=== PATIENT | male | born 1960 | race Caucasian/White ===

== ENCOUNTER 2019-03-14 22:07 | Observation (INO) | payer OTHER ==
[~2019-03-14] VITALS: Ht 193 cm; Wt 75.9 kg
[~2019-03-14 22:07] MED LIST: Bactrim Ds Tab1 EACH PO; Cleocin HCl300 MG PO; Norco 5-325 Ta1 EACH PO
[2019-03-14 23:29] LABS: BASOPHILS ABSOLUTE AUTO 0.09 K/mm3 (0.00-0.23); BASOPHILS PERCENT AUTO 1 % (0-2); EOSINOPHILS ABSOLUTE AUTO 0.17 K/mm3 (0.00-0.68); EOSINOPHILS PERCENT AUTO 1 % (0-6); Hematocrit 40.1 % (37.0-53.0); Hemoglobin 12.9 g/dL (13.5-17.5); IMMATURE GRAN PERCENT AUTO 1 % (0-1); LYMPHOCYTES ABSOLUTE AUTO 2.55 K/mm3 (0.84-5.20); LYMPHOCYTES PERCENT AUTO 15 % (21-46); MONOCYTES ABSOLUTE AUTO 1.22 K/mm3 (0.16-1.47); MONOCYTES PERCENT AUTO 7 % (4-13); Mean Corpuscular HGB 29.3 pg (26.0-34.0); Mean Corpuscular HGB Conc 32.2 g/dL (31.5-36.5); Mean Corpuscular Volume 91 fL (80-100); Mean Platelet Volume 8.8 fL (9.1-12.4); NEUTROPHILS ABSOLUTE AUTO 13.33 K/mm3 (1.96-9.15); NEUTROPHILS PERCENT AUTO 76 % (41-73); Platelet Count 310 K/mm3 (150-400); RDW Standard Deviation 43.4 fL (35.1-46.3); Red Blood Cell Count 4.41 M/mm3 (4.30-5.90); White Blood Cell Count 17.46 K/mm3 (4.00-11.30)
[2019-03-14 23:46] LABS: Alanine Aminotransfer (ALT/SGP 12 U/L (12-78); Albumin/Globulin Ratio 0.8 (0.8-1.8); Alk Phos 83 U/L (50-136); Anion Gap 5 mmol/L (6-16); Aspartate Aminotrans (AST/SGOT 8 U/L (12-37); Bilirubin, Total 0.2 mg/dL (0.1-1.0); Blood Urea Nitrogen 17 mg/dL (8-24); Bun/Creatinine Ratio 20.4 (12.0-20.0); CO2, Blood 29 mmol/L (21-32); Calcium, Blood 8.6 mg/dL (8.5-10.1); Chloride, Blood 106 mmol/L (98-108); Creatinine, Blood 0.84 mg/dL (0.60-1.20); Globulin, Blood 3.6 g/dL (2.2-4.0); Glomerular Filtration Rate >60 (60-); Glucose, Blood 103 mg/dL (70-99); Potassium, Blood 3.8 mmol/L (3.5-5.5); Sodium, Blood 140 mmol/L (136-145); Total Protein, Blood 6.6 g/dL (6.4-8.2)
--- NOTE | 2019-03-15 06:31 | NUR ---
ADMIT NOTE/SHIFT SUMMARY PATIENT PLEASENT AND COOPERATIVE, PATIENT ABLE TO TRANSFER SELF FROM GURNEY TO BED WITH SBA ASSIST. PATIENT SETTLED IN AND ORIENTED TO THE ROOM, UNIT, AND CALL LIGHT. AFTER PATIENT'S ADMIT COMPLETED PATIENT APPEARED TO SLEEP WELL THROUGHOUT THE REST OF THE NIGHT. PATIENT MEDICATED FOR PAIN X 1. IV FLUIDS RUNNING PER ORDERS, IV ABX GIVEN PER ORDERS. PATIENT'S STAYED THE NIGHT AT THE BEDSIDE. VITAL SIGNS CHARTED. WILL CONTINUE TO MONITOR PATIENT AND REPORT TO ONCOMING RN.
[2019-03-15 13:50] LABS: Hematocrit 38.7 % (37.0-53.0); Hemoglobin 12.3 g/dL (13.5-17.5); Mean Corpuscular HGB 29.4 pg (26.0-34.0); Mean Corpuscular HGB Conc 31.8 g/dL (31.5-36.5); Mean Corpuscular Volume 93 fL (80-100); Mean Platelet Volume 9.4 fL (9.1-12.4); Platelet Count 297 K/mm3 (150-400); RDW Coefficient Variation 13.1 % (11.7-14.2); RDW Standard Deviation 44.8 fL (35.1-46.3); Red Blood Cell Count 4.18 M/mm3 (4.30-5.90); White Blood Cell Count 16.23 K/mm3 (4.00-11.30)
[2019-03-15 14:05] LABS: Alanine Aminotransfer (ALT/SGP 12 U/L (12-78); Albumin, Blood 2.6 g/dL (3.4-5.0); Albumin/Globulin Ratio 0.7 (0.8-1.8); Alk Phos 77 U/L (50-136); Anion Gap 5 mmol/L (6-16); Aspartate Aminotrans (AST/SGOT 8 U/L (12-37); Bilirubin, Total 0.2 mg/dL (0.1-1.0); Blood Urea Nitrogen 16 mg/dL (8-24); Bun/Creatinine Ratio 17.8 (12.0-20.0); CO2, Blood 29 mmol/L (21-32); Calcium, Blood 8.5 mg/dL (8.5-10.1); Chloride, Blood 106 mmol/L (98-108); Globulin, Blood 3.6 g/dL (2.2-4.0); Glomerular Filtration Rate >60 (60-); Glucose, Blood 77 mg/dL (70-99); Potassium, Blood 3.8 mmol/L (3.5-5.5); Sodium, Blood 140 mmol/L (136-145); Total Protein, Blood 6.2 g/dL (6.4-8.2)
--- NOTE | 2019-03-15 15:01 | NUR ---
DR LACY HOUSE HERE TO SEE PT. DR HOUSE STATED THAT PACKING CAN COME OUT. THEN PT CAN GO HOME IF HOSPITALIST OK. NO FURTHER SURGICAL F/U NEEDED. CONTINUE POT.
--- NOTE | 2019-03-15 16:04 | NUR ---
TRANSFER TO 354 REPORT CALLED TO [facility] 3RD FLOOR. PT DID NOT WANT TO W/C OR RIDE IN THE BED. HE CHOSE TO WALK TO 354. GAIT STEADY. ACCOMPANIED BY RN AND BENCH SHEAR OPERATOR. CONTINUE POT.
--- NOTE | 2019-03-15 18:12 | NUR ---
SHIFT SUMMARY PT AXO, PLEASANT AND COOPERATIVE WITH CARE. PT ARRIVED TO ROOM VIA SELF AMBULATION ON STEADY GAIT. PT DENIES PAIN, SOB AND NV. PT SITTING UP EATING DINNER AT THIS TIME. VSS. BED IN LOW POSITION, CALL LIGHT WITHIN REACH. PT UP AD SURAJ IN ROOM WITH FAMILY PRESENT AT THIS TIME.
--- NOTE | 2019-03-16 04:00 | NUR ---
SHIFT SUMMARY: PT IS ALERT AND ORIENTED. PT IS CALM AND COOPERATIVE WITH CARE. PT CALLS APPROPRIATELY. FAMILY IN THE ROOM OVERNIGHT. PT IS INDEPENDENT IN THE ROOM. PT REPORTS RECTAL PAIN, MEDICATING PER EMAR. PT DENIES NAUSEA, VOMITING, AND SOB. PT SLEPT MUCH OF THE NIGHT WHEN NOT DISTURBED. NO ACUTE CHANGES OR COMPLICATIONS THIS SHIFT. WILL CONTINUE TO MONITOR.
[2019-03-16] MEDS ORDERED: Doxycycline150 MG PO (10:48)
--- NOTE | 2019-03-16 11:05 | NUR ---
1105 PATIENT TO DISCHARGE. IV REMOVED WITH NO SS OF INFECTION NOTED. NURSE FAXED MEDS INTO PHARMACY AND EDUCATED PATIENT REGARDING ABX . PATIENT TOLD TO FOLLOW UP WITH [facility] AND TO ESTABLISH A PCP. PATIENT IS ABLE TO WALK OUT WITH HIS AND WILL BE GOING HOME.
--- NOTE | 2019-03-16 14:50 | NUR ---
Pt.is in bed resting he reports doing much better and may go joe mendez today or karri, encouraged pt. and offered some prayers .
== END 2019-03-16 11:34 | disposition home or self-care (01) ==
LOC: ER 22:07 → PCU 22:08 → MEDS 22:08 → PCU 03-15 02:33 → MEDS 03-15 16:07 → ENPENDDIS 03-16 11:08 → MEDS 03-16 11:34
PROVIDERS: Physician Assistant; ADMIT Internal Medicine
DX: L02.31 Cutaneous abscess of buttock (principal); F17.210 Nicotine dependence, cigarettes, uncomplicated; F17.200 Nicotine dependence, unspecified, uncomplicated; Z88.0 Allergy status to penicillin
CPT/HCPCS: 10061; 36415; 72193; 80053; 83605; 85025; 85027; 87040; 87077; 87147; 87186; 96365-59; 96366; 96366-59; 96367; 96372; 96375-59; 96376; 99284-25; A9270; G0378; J1170; J1650; J1956; J3010; J3370; J7030; J7050; Q9967

== ENCOUNTER → 2019-03-19 | Outpatient (CLI) | payer OTHER ==
[~2019-03-19] MED LIST changes: +Doxycycline150 MG PO
== END | disposition home or self-care (01) ==
LOC: LAB EV 12:38 → LAB SHORT 12:38
DX: L05.01 Pilonidal cyst with abscess (principal); L02.31 Cutaneous abscess of buttock
CPT/HCPCS: 87070; 87077; 87147; 87186; 87205

== ENCOUNTER → 2020-01-31 | Outpatient (CLI) | payer OTHER ==
[2020-01-31 12:08] LABS: BASOPHILS ABSOLUTE AUTO 0.12 K/mm3 (0.00-0.23); BASOPHILS PERCENT AUTO 1 % (0-2); EOSINOPHILS ABSOLUTE AUTO 0.45 K/mm3 (0.00-0.68); EOSINOPHILS PERCENT AUTO 3 % (0-6); Hematocrit 40.8 % (37.0-53.0); Hemoglobin 13.5 g/dL (13.5-17.5); IMMATURE GRAN ABSOLUTE AUTO 0.05 K/mm3 (0.00-0.10); IMMATURE GRAN PERCENT AUTO 0 % (0-1); LYMPHOCYTES ABSOLUTE AUTO 2.67 K/mm3 (0.84-5.20); LYMPHOCYTES PERCENT AUTO 19 % (21-46); MONOCYTES ABSOLUTE AUTO 1.06 K/mm3 (0.16-1.47); MONOCYTES PERCENT AUTO 8 % (4-13); Mean Corpuscular HGB 29.7 pg (26.0-34.0); Mean Corpuscular HGB Conc 33.1 g/dL (31.5-36.5); Mean Corpuscular Volume 90 fL (80-100); Mean Platelet Volume 9.1 fL (9.1-12.4); NEUTROPHILS ABSOLUTE AUTO 9.77 K/mm3 (1.96-9.15); NEUTROPHILS PERCENT AUTO 69 % (41-73); Platelet Count 297 K/mm3 (150-400); RDW Coefficient Variation 13.2 % (11.7-14.2); RDW Standard Deviation 43.5 fL (35.1-46.3); Red Blood Cell Count 4.54 M/mm3 (4.30-5.90); White Blood Cell Count 14.12 K/mm3 (4.00-11.30)
[2020-01-31 12:23] LABS: Alanine Aminotransfer (ALT/SGP 19 U/L (12-78); Albumin, Blood 3.3 g/dL (3.4-5.0); Albumin/Globulin Ratio 0.8 (0.8-1.8); Alk Phos 104 U/L (40-126); Anion Gap 7 mmol/L (6-16); Aspartate Aminotrans (AST/SGOT 19 U/L (12-37); Bilirubin, Total 0.2 mg/dL (0.1-1.0); Blood Urea Nitrogen 20 mg/dL (8-24); Bun/Creatinine Ratio 22.2 (12.0-20.0); CO2, Blood 30 mmol/L (21-32); Chloride, Blood 104 mmol/L (98-108); Globulin, Blood 4.2 g/dL (2.2-4.0); Glomerular Filtration Rate >60 (60-); Glucose, Blood 97 mg/dL (70-99); Potassium, Blood 4.4 mmol/L (3.5-5.5); Sodium, Blood 141 mmol/L (136-145); Total Protein, Blood 7.5 g/dL (6.4-8.2)
== END ==
LOC: LAB EV 11:44 → LAB SHORT 11:44
PROVIDERS: Physician Assistant Medical
DX: L03.113 Cellulitis of right upper limb (principal)
CPT/HCPCS: 80053; 85025; 87070; 87075; 87077; 87147; 87186; 87205